=== PATIENT | male | born 1975 ===

== ENCOUNTER 2018-10-08 05:18 | Emergency (ER) | payer OTHER ==
[~2018-10-08] VITALS: Ht 172.7 cm; Wt 86.2 kg
[2018-10-08] MEDS ORDERED: ARICEPT5 MG (05:41)
== END 2018-10-08 15:22 | disposition home or self-care (01) ==
LOC: ER 05:18
DX: N30.81 Other cystitis with hematuria (principal); B96.89 Other specified bacterial agents as the cause of diseases classified elsewhere; R10.11 Right upper quadrant pain

== ENCOUNTER 2019-01-21 10:32 | Outpatient (CLI) | payer OTHER ==
[~2019-01-21 10:32] MED LIST: ARICEPT5 MG
== END 2019-01-21 10:41 | disposition home or self-care (01) ==
LOC: MAMO-SONO 10:32
DX: N39.0 Urinary tract infection, site not specified (principal); N13.30 Unspecified hydronephrosis

== ENCOUNTER 2019-02-02 18:56 | Emergency (ER) | payer OTHER ==
[~2019-02-02] VITALS: Ht 172.7 cm; Wt 83.5 kg
[2019-02-02] MEDS ORDERED: ARICEPT10 MG PO (19:37)
[2019-02-02] MEDS ORDERED: TAMS0.4C PO (19:38)
== END 2019-02-03 00:26 | disposition home or self-care (01) ==
LOC: ER 18:56
DX: E86.0 Dehydration (principal); N39.0 Urinary tract infection, site not specified; R10.11 Right upper quadrant pain; R11.2 Nausea with vomiting, unspecified

== ENCOUNTER → 2019-03-09 10:48 | Outpatient (CLI) | payer OTHER ==
[~2019-03-09 10:48] MED LIST changes: +ARICEPT10 MG PO; +TAMS0.4C PO
== END | disposition home or self-care (01) ==
LOC: LAB 10:48
DX: N30.00 Acute cystitis without hematuria (principal); B96.89 Other specified bacterial agents as the cause of diseases classified elsewhere

== ENCOUNTER 2019-03-09 11:10 | Outpatient (CLI) | payer OTHER | END 2019-03-09 11:13 | disposition home or self-care (01) | LOC: TOM 11:10 | DX: R10.84 Generalized abdominal pain (principal) ==

== ENCOUNTER 2019-04-29 06:30 | Day surgery (SDC) | payer OTHER | END 2019-04-29 12:00 | disposition home or self-care (01) | LOC: AMB-ENDOS 06:30 | DX: K57.30 Diverticulosis of large intestine without perforation or abscess without bleeding (principal); K64.1 Second degree hemorrhoids ==

== ENCOUNTER 2019-05-25 09:30 | Day surgery (SDC) | payer OTHER ==
[~2019-05-25 09:30] MED LIST changes: +UREX PO
== END 2019-05-25 18:30 | disposition home or self-care (01) ==
LOC: CIR.AMB 09:30
DX: N40.1 Benign prostatic hyperplasia with lower urinary tract symptoms (principal)

== ENCOUNTER 2020-10-23 16:11 | Emergency (ER) | payer OTHER ==
[~2020-10-23] VITALS: Ht 175.3 cm; Wt 86.2 kg
[2020-10-23] MEDS ORDERED: CLONAZEPAM0.5 MG PO (16:25)
[2020-10-23] MEDS ORDERED: ARICEPT10 MG (16:26)
== END 2020-10-23 21:30 | disposition home or self-care (01) ==
LOC: ER 16:11
DX: J44.9 Chronic obstructive pulmonary disease, unspecified (principal); Q90.9 Down syndrome, unspecified; Z11.52 Encounter for screening for COVID-19

== ENCOUNTER 2021-09-11 17:58 | Emergency (ER) | payer OTHER ==
[~2021-09-11] VITALS: Ht 172.7 cm; Wt 77.1 kg
[~2021-09-11 17:58] MED LIST changes: +ARICEPT10 MG; +CLONAZEPAM0.5 MG PO
[2021-09-11] MEDS ORDERED: NAMENDA5 MG (19:18)
[2021-09-11] MEDS ORDERED: QUETIAPINE FUM400 M1 (19:18)
== END 2021-09-11 22:34 | disposition home or self-care (01) ==
LOC: ER 17:58
DX: R25.8 Other abnormal involuntary movements (principal); G30.8 Other Alzheimer's disease; F02.80 Dementia in other diseases classified elsewhere, unspecified severity, without behavioral disturbance, psychotic disturbance, mood disturbance, and anxiety; Q90.9 Down syndrome, unspecified

== ENCOUNTER 2021-10-01 11:08 | Emergency (ER) | payer OTHER ==
[~2021-10-01] VITALS: Ht 152.4 cm; Wt 86.2 kg
[~2021-10-01 11:08] MED LIST changes: +NAMENDA5 MG; +QUETIAPINE FUM400 M1
[2021-10-01] MEDS ORDERED: PROZAC20 MG PO (11:30)
[2021-10-01] MEDS ORDERED: LORAZEPAM1 MG PO (11:30)
== END 2021-10-01 13:50 | disposition home or self-care (01) ==
LOC: ER 11:08
DX: S01.21XA Laceration without foreign body of nose, initial encounter (principal); W19.XXXA Unspecified fall, initial encounter; Y93.9 Activity, unspecified; Y92.019 Unspecified place in single-family (private) house as the place of occurrence of the external cause; Q90.9 Down syndrome, unspecified; G30.9 Alzheimer's disease, unspecified; F02.80 Dementia in other diseases classified elsewhere, unspecified severity, without behavioral disturbance, psychotic disturbance, mood disturbance, and anxiety

== ENCOUNTER 2021-10-14 21:45 | Emergency (ER) | payer OTHER ==
[~2021-10-14] VITALS: Ht 175.3 cm; Wt 86.2 kg
[~2021-10-14 21:45] MED LIST changes: +LORAZEPAM1 MG PO; +PROZAC20 MG PO
[2021-10-14] MEDS ORDERED: KEPPRA XR500 MG (22:08)
[2021-10-14] MEDS ORDERED: LEVETIRACETAM250 MG (22:09)
[2021-10-14] MEDS ORDERED: SPRITAM500 MG (22:09)
== END 2021-10-15 13:17 | disposition home or self-care (01) ==
LOC: ER 21:45
DX: R29.898 Other symptoms and signs involving the musculoskeletal system (principal); Q90.9 Down syndrome, unspecified; G30.9 Alzheimer's disease, unspecified; F02.80 Dementia in other diseases classified elsewhere, unspecified severity, without behavioral disturbance, psychotic disturbance, mood disturbance, and anxiety